=== PATIENT | male | born 1960 | race African-American/Black ===

== ENCOUNTER 2018-03-14 16:23 | Emergency (ER) | payer MEDICAID ==
[~2018-03-14] VITALS: Ht 188 cm; Wt 109.0 kg
[2018-03-14] MEDS ORDERED: MORPHINE SULFATE 4 MG/ML CPJ (NOT FOR IM USE) IV STA (17:50)
[2018-03-14] MEDS ORDERED: ONDANSETRON HCL 4MG/2ML INJ IV STA (17:50)
[2018-03-14 18:01] LABS: HEMATOCRIT. 43.1 % (42.0-52.0); HEMOGLOBIN. 14.8 g/dL (14.0-18.0); MEAN CORPUSCULAR VOLUME 87.7 fL (80.0-94.0); MEAN PLATELET VOLUME 9.3 fl (7.4-10.4); PLATELET 191 x1000/uL (130-400); RED BLOOD CELL COUNT 4.92 mill/uL (4.7-6.1); RED CELL DISTRIBUTION WIDTH 14.4 % (11.6-14.6)
[2018-03-14 18:02] LABS: CHLORIDE 102 mEq/L (98-107)
[2018-03-14 18:32] LABS: PLATELET ESTIMATE NORMAL
[2018-03-14] MEDS ORDERED: MORPHINE SULFATE 4 MG/ML CPJ (NOT FOR IM USE) IV ONE (18:45)
[2018-03-14] MEDS ORDERED: HYDRALAZINE 20MG/ML VIAL IV ONE (18:45)
[2018-03-14] MEDS ORDERED: IOHEXOL-350 100 ML BOTTLE ONE (21:45)
[2018-03-14 23:52] LABS: CLARITY URINE CLEAR (CLEAR); COLOR URINE YELLOW (YELLOW); KETONES URINE 3+ (NEGATIVE); LEUKOCYTE ESTERASE URINE NEGATIVE (NEGATIVE); NITRITE URINE NEGATIVE (NEGATIVE); OCCULT BLOOD URINE 1+ (NEGATIVE); PH URINE 6.5 (4.5-8.0); PROTEIN URINE 1+ (NEGATIVE); SPECIFIC GRAVITY URINE 1.057 (1.005-1.030)
[2018-03-15 00:28] VITALS: BP 138/72
== END 2018-03-15 00:29 | disposition home or self-care (01) ==
LOC: ER 16:23
DX: R10.12 Left upper quadrant pain (principal); R10.32 Left lower quadrant pain; R50.9 Fever, unspecified; I10 Essential (primary) hypertension
CPT/HCPCS: 36415; 71045; 74177; 80053; 81003; 83605; 83690; 84484; 85025; 93005; 96374; 96375; 96376; 99285; J0360; J2270; J2405; Q9967